=== PATIENT | male | born 1980 | race Hispanic/Latino ===

== ENCOUNTER 2019-11-17 22:12 | Emergency (ER) | payer SELFPAY ==
[2019-11-17] MEDS ORDERED: SILVADENE1 % EX (23:17)
[2019-11-17] MEDS ORDERED: NAPROXEN500 MG PO (23:17)
[2019-11-17 23:50] VITALS: BP 136/82
== END 2019-11-17 23:50 | disposition home or self-care (01) | DRG 605 ==
LOC: ED 22:12
PROC: 2W2DX4Z Dressing of Left Lower Arm using Bandage (ICD-10-PCS; principal; 2019-11-17)
DX: S00.83XA Contusion of other part of head, initial encounter (principal); T22.212A Burn of second degree of left forearm, initial encounter; F17.210 Nicotine dependence, cigarettes, uncomplicated; Y04.2XXA Assault by strike against or bumped into by another person, initial encounter; T31.0 Burns involving less than 10% of body surface; X19.XXXA Contact with other heat and hot substances, initial encounter